=== PATIENT | male | born 2005 | race Asian ===

== ENCOUNTER 2025-09-02 14:34 | Emergency (ER) | payer BC ==
[2025-09-02] MEDS ORDERED: Ondansetron PF 4 MG/2 ML Vial ONE (16:07)
[2025-09-02 16:10] LABS: #Basophils Less than 0.03 10x3/uL (0.0-0.2); #Eosinophils Less than 0.03 10x3/uL (0.0-0.7); #Monocytes 0.61 10x3/uL (0.11-0.59); #Neutrophils 6.23 10x3/uL (1.40-6.50); %Basophils 0.3 % (0.0-1.0); %Eosinophils 0.3 % (0.0-10.0); %Lymphocytes 12.2 % (21.0-51.0); %Monocytes 7.8 % (0.0-10.0); %Neutrophils 79.1 % (42.0-75.0); Hematocrit 48.9 % (42.0-52.0); Hemoglobin 16.6 g/dL (14.0-18.0); Mean Corpuscular Hemoglobin 29.7 pg (27.0-31.0); Mean Corpuscular Volume 87.6 fL (78.0-98.0); Platelet Count 187 10x3/uL (130-400); Red Blood Cell (RBC) Count 5.58 mill/uL (4.70-6.10); White Blood Cell (WBC) Count 7.86 10x3/uL (4.8-10.8)
[2025-09-02 16:26] LABS: ALT (SGPT) 8 U/L (Less than 45); AST (SGOT) 22 U/L (11-34); Albumin 4.5 g/dL (3.1-4.5); Alkaline Phosphatase 79 U/L (40-110); Anion Gap 12 mmol/L (10-20); BUN (Urea Nitrogen) 7 mg/dL (8.9-20.6); Bilirubin, Total 0.7 mg/dL (0.3-1.2); Calc. Creatinine Clearance 0 mL/min (70-130); Calcium 9.6 mg/dL (7.8-10.44); Carbon Dioxide 26 mmol/L (22-29); Chloride 102 mmol/L (98-107); Globulin 3.9 g/dL (2.4-3.5); Glucose 120 mg/dL (70-105); Potassium 4.1 mmol/L (3.5-5.1); Sodium 136 mmol/L (136-145)
[2025-09-02] MEDS ORDERED: Dexamethasone 10 MG/ML VIAL ONE (16:52)
[2025-09-02] MEDS ORDERED: Lidocaine Viscous Sol 2% 15 ml UD Cup ONE (16:52)
[2025-09-02] MEDS ORDERED: Mag-Al 1200 mg/1200 mg/30 ML UDCUP ONE (16:52)
[2025-09-02] MEDS ORDERED: cefTRIAXone (ROCEPHIN) 2 GM VIAL ONE (18:34)
[2025-09-02] MEDS ORDERED: Azithromycin 500 MG VIAL ONE (19:24)
[2025-09-02 20:05] LABS: Bacteria/HPF None Seen HPF (None Seen); CAUTI Indications for Culture Dysuria,urgency,freq; Glucose, Urine (Dipstick) Normal (Negative); Leukocyte Negative Leu/uL (Negative); Protein, Urine (Dipstick) 30 mg/dL (Neg-Trace); Specific Gravity, Urine 1.020 (1.002-1.036); WBC/HPF 0-3 HPF (0-3)
[2025-09-02 20:10] LABS: Urine Culture Reflex No No
[2025-09-02] MEDS ORDERED: Acetaminophen 500 MG TAB ONE (20:33)
== END 2025-09-02 21:30 | disposition home or self-care (01) ==
LOC: ERS 14:34
DX: J15.9 Unspecified bacterial pneumonia (principal)
CPT/HCPCS: 36415; 71045; 80053; 81001; 83605; 84484; 85025; 87040; 87086; 87428; 93005; 94760; 96365; 96367; 96375; J0456; J0696; J1100; J2405